=== PATIENT | male | born 1955 | race Caucasian/White ===

== ENCOUNTER 2018-06-08 21:51 | Emergency (ER) | payer BC ==
[~2018-06-08] VITALS: Ht 172.7 cm; Wt 81.8 kg
[2018-06-08] MEDS ORDERED: LIDOCAINE 2% MDV 20 ML VIAL SC ONE (22:15)
[2018-06-08] MEDS ORDERED: ADACEL/BOOSTRIX VACCINE (DIPHTH/PERTUSS/ACELL/TETANUS)0.5ML SYR (90715) IM ONE (22:15)
[2018-06-08] MEDS ORDERED: KEFL500C17 PO (22:48)
[2018-06-08 22:50] VITALS: BP 99/57
== END 2018-06-08 23:02 | disposition home or self-care (01) ==
LOC: M ED 21:51
DX: S61.012A Laceration without foreign body of left thumb without damage to nail, initial encounter (principal); W26.0XXA Contact with knife, initial encounter; Y92.098 Other place in other non-institutional residence as the place of occurrence of the external cause; Z88.8 Allergy status to other drugs, medicaments and biological substances

== ENCOUNTER → 2019-07-17 | Outpatient (REF) | payer BC ==
[~2019-07-17] MED LIST: KEFL500C17 PO
[2019-07-17 16:37] LABS: BASO # 0.1 10^3/uL (0.0-0.2); BASO % 0.7 % (0.0-1.0); EOS # 0.3 10^3/uL (0.0-0.5); HEMATOCRIT 45.4 % (42.0-52.0); HEMOGLOBIN 15.1 g/dl (13.5-17.5); LYMPH # 2.9 10^3/uL (1.5-5.0); LYMPH % 27.7 % (24.0-44.0); MEAN CORPUSCULAR HEMOGLOBIN 30.5 pg (27.0-33.0); MEAN CORPUSCULAR HGB CONC 33.3 g/dl (32.0-36.5); MEAN CORPUSCULAR VOLUME 91.7 fl (80.0-96.0); MONO # 0.6 10^3/uL (0.0-0.8); MONO % 6.2 % (0.0-5.0); NEUTROPHILS # 6.4 10^3/uL (1.5-8.5); NEUTROPHILS % 62.2 % (36.0-66.0); PLATELET COUNT, AUTOMATED 281 10^3/uL (150-450); RED BLOOD COUNT 4.95 10^6/uL (4.30-6.10); WHITE BLOOD COUNT 10.3 10^3/uL (4.0-10.0)
[2019-07-17 17:03] LABS: BILIRUBIN,TOTAL 0.7 MG/DL (0.2-1.0); CALCIUM LEVEL 9.2 MG/DL (8.8-10.2); CHOLESTEROL RISK RATIO 4.372 (<5); CREATININE FOR GFR 1.37 MG/DL (0.70-1.30); GLOMERULAR FILTRATION RATE 55.9 (>49); POTASSIUM SERUM 4.3 MEQ/L (3.5-5.1); THYROID STIMULATING HORMONE 2.07 uIU/ML (0.358-3.740)
== END ==
LOC: M LAB REF 16:09 → M SFHCCLAY 16:09
PROVIDERS: ATTEND Physician Assistant
DX: Z00.00 Encounter for general adult medical examination without abnormal findings (principal); R53.83 Other fatigue

== ENCOUNTER → 2020-06-24 | Outpatient (REF) | payer BC ==
[2020-06-24 16:44] LABS: ALT/SGPT 32 U/L (12-78); BILIRUBIN,TOTAL 0.3 MG/DL (0.2-1.0); BLOOD UREA NITROGEN 18 MG/DL (7-18); CALCIUM LEVEL 9.5 MG/DL (8.8-10.2); CARBON DIOXIDE LEVEL 29 MEQ/L (21-32); CHLORIDE LEVEL 105 MEQ/L (98-107); CHOLESTEROL LEVEL 205 MG/DL (<200); CREATININE FOR GFR 1.27 MG/DL (0.70-1.30); GLOMERULAR FILTRATION RATE > 60.0 (>49); GLUCOSE, FASTING 89 MG/DL (70-100); HDL CHOLESTEROL 43 MG/DL (>40); POTASSIUM SERUM 4.8 MEQ/L (3.5-5.1); SODIUM LEVEL 141 MEQ/L (136-145); TRIGLYCERIDES LEVEL 310 MG/DL (<150)
[2020-06-24 16:45] LABS: ALBUMIN 4.3 GM/DL (3.2-5.2); CHOLESTEROL RISK RATIO 4.767 (<5); FREE T4 0.92 NG/DL (0.76-1.46); LDL CHOLESTEROL 100 MG/DL (<100); NON-HDL-C 162 MG/DL; TOTAL PROTEIN 7.4 GM/DL (6.4-8.2)
== END ==
LOC: M LABDRAWC 15:48
PROVIDERS: ATTEND Nurse Practitioner Family
DX: Z00.00 Encounter for general adult medical examination without abnormal findings (principal); Z80.42 Family history of malignant neoplasm of prostate
CPT/HCPCS: 36415; 80053; 80061; 84439; 84443; G0103

== ENCOUNTER → 2020-08-03 | Outpatient (REF) | payer BC ==
[2020-08-04 12:34] LABS: BILIRUBIN,TOTAL 0.4 MG/DL (0.2-1.0); CALCIUM LEVEL 8.9 MG/DL (8.8-10.2); CREATININE FOR GFR 1.45 MG/DL (0.70-1.30); GLOMERULAR FILTRATION RATE 52.2 (>49); POTASSIUM SERUM 4.1 MEQ/L (3.5-5.1); TOTAL PROTEIN 6.9 GM/DL (6.4-8.2)
[2020-08-05 16:08] LABS: H PYLORI SERUM QUANT IGA <9.0 units (0.0-8.9); H PYLORI SERUM QUANT IGM <9.0 units (0.0-8.9); H PYLORI SERUM QUANT IgG ABY 0.23 (0.00-0.79)
== END ==
LOC: M LABDRAWC 11:16
PROVIDERS: ATTEND Nurse Practitioner Family
DX: K21.9 Gastro-esophageal reflux disease without esophagitis (principal)

== ENCOUNTER 2020-08-26 22:29 | Inpatient (IN) | payer BC ==
[~2020-08-26] VITALS: Ht 172.7 cm; Wt 88.9 kg
[2020-08-26] MEDS ORDERED: LATU20TA PO (22:44)
[2020-08-26] MEDS ORDERED: LITH300C PO (22:44)
[2020-08-26] MEDS ORDERED: LAMO-11 PO (22:44)
[2020-08-26] MEDS ORDERED: ALPR0.5T3 PO (22:44)
[2020-08-26] MEDS ORDERED: FAMO1TAB11 PO (22:44)
[2020-08-27 00:17] LABS: HEMATOCRIT 45.2 % (42.0-52.0); HEMOGLOBIN 15.2 g/dl (13.5-17.5); MEAN CORPUSCULAR HEMOGLOBIN 30.5 pg (27.0-33.0); MEAN CORPUSCULAR HGB CONC 33.6 g/dl (32.0-36.5); MEAN CORPUSCULAR VOLUME 90.6 fl (80.0-96.0); PLATELET COUNT, AUTOMATED 266 10^3/uL (150-450); RED BLOOD COUNT 4.99 10^6/uL (4.30-6.10)
[2020-08-27 00:19] LABS: WHITE BLOOD COUNT 15.9 10^3/uL (4.0-10.0)
[2020-08-27] MEDS ORDERED: ISOVUE-370 76% 100ML VIAL As Ordered ONE (00:26)
[2020-08-27] MEDS ORDERED: CIPROFLOXACIN 400 MG in IV 1 EA IV ONE (00:30)
[2020-08-27] MEDS ORDERED: metroNIDAZOLE 500 MG in IV 1 EA IV ONE (00:30)
[2020-08-27] MEDS ORDERED: ONDANSETRON 4MG/2ML VIAL IV ONE (00:30)
[2020-08-27] MEDS ORDERED: MORPHINE 4 MG/ML 1ML VIAL/SYRINGE (J2270) IV PRN (00:30)
[2020-08-27 00:32] LABS: ATYPICAL LYMPH 12 % (0-5); EOSINOPHILS 4 % (0-3); LYMPHOCYTES 38 % (16-44); MONOCYTES 7 % (0-5); NEUTROPHILS 39 % (28-66); PLATELET ESTIMATE NORMAL (NORMAL); SMUDGE CELLS 1+
[2020-08-27] MEDS: NS 1,000 ML IV SCH ×3 (00:45→21:50)
[2020-08-27 00:54] LABS: ALBUMIN 3.7 GM/DL (3.2-5.2); ALT/SGPT 25 U/L (12-78); BILIRUBIN,DIRECT < 0.1 MG/DL (0.0-0.2); BILIRUBIN,TOTAL 0.2 MG/DL (0.2-1.0); CK-MB VALUE MASS 1.6 NG/ML (<3.6); CPK CREATINE PHOSPHOKINASE 92 U/L (39-308); LIPASE 113 U/L (73-393); MB/CK RELATIVE INDEX 1.74 (< OR =4); TOTAL PROTEIN 6.9 GM/DL (6.4-8.2); TROPONIN I < 0.02 NG/ML (< 0.10)
--- NOTE | 2020-08-27 01:13 | REPVR ---
PROCEDURE INFORMATION: Exam: XR Chest Exam date and time: 08/26/2020 11:50 PM Age: 65 years old Clinical indication: Other: Chest pain TECHNIQUE: Imaging protocol: XR of the chest Views: 1 view. COMPARISON: No relevant prior studies available. FINDINGS: Lungs: Minimal right basilar atelectasis. Lung adams are otherwise clear. Pleural spaces: Unremarkable. No pleural effusion. No pneumothorax. Heart/Mediastinum: Unremarkable. No cardiomegaly. Vasculature: Elongation of the thoracic aorta. Bones/joints: Unremarkable. IMPRESSION: No acute process. Electronically signed by: Steven Rivero On 08/27/2020 01:13:06 AM
--- NOTE | 2020-08-27 01:20 | REPVR ---
PROCEDURE INFORMATION: Exam: CT Abdomen And Pelvis With Contrast Exam date and time: 08/27/2020 12:20 AM Age: 65 years old Clinical indication: Abdominal pain; Localized; Left lower quadrant (llq); Additional info: Llq pain, HX diverticulosis TECHNIQUE: Imaging protocol: Computed tomography of the abdomen and pelvis with contrast. Radiation optimization: All CT scans at this facility use at least one of these dose optimization techniques: automated exposure control; mA and/or kV adjustment per patient size (includes targeted exams where dose is matched to clinical indication); or iterative reconstruction. Contrast material: ISO; Contrast volume: 100 ml; Contrast route: INTRA-ARTERIAL (ARTERIAL); COMPARISON: No relevant prior studies available. FINDINGS: Lungs: Linear atelectasis or scarring at the lung bases. Mediastinal space: Small fat containing hiatal hernia. Liver: 2.4 cm right hepatic cyst. Additional small hepatic hypodensities are too small to characterize. Gallbladder and bile ducts: Normal. No calcified stones. No ductal dilation. Pancreas: There is pancreatic atrophy. Spleen: Normal. No splenomegaly. Adrenal glands: Normal. No mass. Kidneys and ureters: Normal. No hydronephrosis. Stomach and bowel: Diverticulosis without diverticulitis. Appendix: Normal appendix. Intraperitoneal space: Unremarkable. No free air. No significant fluid collection. Vasculature: Vascular calcification. Lymph nodes: Unremarkable. No enlarged lymph nodes. Urinary bladder: Unremarkable as visualized. Reproductive: Unremarkable as visualized. Bones/joints: There are degenerative changes involving the spine. Soft tissues: Unremarkable. IMPRESSION: 1. No acute abnormality involving the abdomen or pelvis. 2. Non emergent findings as above. Electronically signed by: Steven Rivero On 08/27/2020 01:20:40 AM
[2020-08-27] MEDS ORDERED: ACETAMINOPHEN TAB 650MG DOSE (2X325MG) PO PRN (02:40)
--- NOTE | 2020-08-27 02:57 | HPEPDOC ---
General Date of Admission 08/27/20 Date of Service: Aug 27, 2020 Attending Physician: CHAZ CARROLL MD Chief Complaint The patient is a 65-year-old male admitted with a reason for visit of Abd Pain. History of Present Illness HPI: Pt is a 65 y/o gentleman who presents to [facility] ER with cc of lower left quadrant abdominal pain x 3 days. Pt states that he's been experiencing bloating and gas like never before for the past 4 months. He states that he also has noticed that in the last 2 months that he's had episodes of constipation for 2-3 days and then a day or two of very loose stools. He states that when he is not experiencing constipation, he has 8-10 episodes of very loose non-bloody stools. He does not seem to have noticed any changes in stool caliber such as pencil thin shaped stools. Pt states he's recently traveled to [place] but denies any sick contacts. Denies any changes in eating habits. In the ER, he was in 7/10 pain with guarding on palpation and peritoneal signs as reported by the ER physician. He was given IV morphine and upon my examination, pt was in 1/10 pain and no significant guarding on palpation. CT abd/pelvis w/ ctx did not show any acute abn; however, pt has a WBC around 15. He denies any Chest pain, sob. Reports some nausea which he attributes to his reflux but denies any vomiting. Past medical Hx: Hx of diverticulosis and hemorrhoids GERD PTSD MDD Hx of epididymitis Arthritis accidents broken bones- 11 ribs on L side and nasal fx Surgical hx: colonoscopy 08/[address] buck cyst removal (benign) 2009 Family Hx: Father , COPD, HTN, CAD Mother: , CAD HTN Siblings 2 brothers with prostate ca 1 brother with pancreatic ca son alive- hodgkin's disease Social hx: Never smoker, occassional ETOH use; denies illicit drug use PHYSICAL EXAM: VS: see below ENERAL: Pt is laying comfortably, NAD HEENT: EOMI. Conjunctiva and lids normal. CARDIOVASCULAR: regular rhythm, rate controlled 58 on tele monitor. no crackles heard PULMONARY: No wheezing rhonci or rales appreciated. ABD: tenderness to palpation in epigastric region and lower left quadrant. mild guarding. Hypoactive bowel sounds in all four quadrants. EXTREMITIES: 2+ DP pulses. no pitting edema NEURO: No focal neurological deficits. CN II-12 preserved. Strength 3/5 throughout; sensation intact PSYCH: appropriate mood and affect; denies any suicidal ideation or self harm IMAGING: XR chest: No acute findings CT abd/pelvis w/ IV ctx : 1. No acute abnormality involving the abdomen or pelvis. 2. Non emergent findings as above. ASSESSMENT AND PLAN #Possible diverticulitis - cannot r/o malignancy - leukocytosis; afebrile - pt has a hx of diverticulosis - CT abd/pelvis w/ ctx: did not show any abn - NPO. will start NS @100cc/h for maintenance - will start on IV cipro/flagyl for empiric coverage - Recommend repeating CT abd/pelvis - Consider consulting Gen surg/GI for scope or f/u outpt #Diarrhea - Will order GI panel includ c diff - will order for stool occult blood - isolation precautions #GERD - c/w home meds # PTSD, MDD -c/w home meds DVT ppx: heparin Code status: Full Home Medications Scheduled Famotidine (Famotidine) 20 Mg Tablet, 20 MG PO BID, (Reported) Lamotrigine (Lamotrigine Odt) 100 Mg Tab.rapdis, 100 MG PO BID, (Reported) [place] Carbonate ([place] Carbonate) 300 Mg Capsule, 300 MG PO QPM, (Reported) TAKES AT DINNER Lurasidone Hydrochloride (Latuda) 20 Mg Tablet, 20 MG PO QPM, (Reported) TAKES AT DINNER Scheduled PRN Alprazolam (Alprazolam) 0.5 Mg Tablet, 0.5 MG PO BID PRN for ANXIETY, (Reported) Allergies Coded Allergies: prednisone (Verified Adverse Reaction, Intermediate, IRREGULAR HEART RATE, 08/26/20) A-FIB/CHADSVASC A-FIB History Current/History of A-Fib/PAF?: No Current PO Anticoag Therapy: No Vital Signs Vital Signs Date Time Temp Pulse Resp B/P (MAP) Pulse Ox O2 Delivery O2 Flow Rate FiO2 08/27/20 02:30 54 16 119/70 (86) 96 Room Air 08/26/20 22:29 97.3 Laboratory Data Labs 24H Laboratory Tests 2 08/26/20 23:56: Neutrophils (%) (Auto) , Nucleated Red Blood Cells % (auto) 0.0, Neutrophils 39, Lymphocytes (Manual) 38, Monocytes (Manual) 7H, Eosinophils (Manual) 4H, Atypical Lymphocytes 12H, Red Blood Cell Morphology NORMAL, Smudge Cells 1+, Platelet Estimate NORMAL, Total Bilirubin 0.2, Direct Bilirubin < 0.1, Aspartate Amino Transf (AST/SGOT) 17, Alanine Aminotransferase (ALT/SGPT) 25, Alkaline Phosphatase 69, Total Creatine Kinase 92, Creatine Kinase MB 1.6, Creatine Kinase MB Relative Index 1.74, Troponin I < 0.02, Total Protein 6.9, Albumin 3.7, Albumin/Globulin Ratio 1.2, Lipase 113 CBC/BMP Laboratory Tests 08/26/20 23:56 Microbiology Microbiology 08/27/20 Respiratory Virus Panel (PCR) ([facility]) - Final, Complete Plan / VTE VTE Prophylaxis Ordered?: Yes GME ATTESTATION GME ATTESTATION My faculty preceptor for this patient encounter was physically present during the encounter and was fully available. All aspects of the patient interview, examination, medical decision making process, and medical care plan development were reviewed and approved by the faculty preceptor. The faculty preceptor is aware and concurs with the plan as stated in the body of this note and will attest to such by his/her cosignature. Pierre Nieves DO Aug 27, 2020 02:57
[2020-08-27] MEDS ORDERED: MORPHINE 2 MG/ML 1ML VIAL (J2270) IV SCH (03:05)
[2020-08-27] MEDS ORDERED: ONDANSETRON 4MG/2ML VIAL IV PRN (03:10)
[2020-08-27] MEDS: HEPARIN SOD (PORCINE) 5000UNITS/ML 1ML VIAL/SYRINGE SC SCH ×3 (04:56→18:06)
[2020-08-27 06:00] VITALS: BP 140/82
--- NOTE | 2020-08-27 06:48 | ECGEPIP ---
[facility] - ED Test Date: 2020-08-27 Pat Name: VÍCTOR DAVIDSON Department: Room: [place] [address] Gender: Male [employer]: : 1955 Requested By: Montana Cedillo Order Number: [id number] Reading MD: Alma Palacios Measurements Intervals [place] Rate: 55 P: 8 AL: 182 QRS: 16 QRSD: 94 T: 18 QT: 406 QTc: 388 Interpretive Statements Sinus bradycardia No prior ECG for comparison Electronically Signed on 08-27-2020 6:47:56 EDT by Alma Palacios
[2020-08-27] MEDS: FAMOTIDINE 20 MG TAB PO SCH ×2 (09:10→21:43)
[2020-08-27] MEDS: lamoTRIgine 100MG TAB PO SCH ×2 (09:10→21:43)
[2020-08-27] MEDS: CIPROFLOXACIN 400 MG in IV 1 EA IV SCH ×2 (09:11→21:43)
[2020-08-27 10:39] LABS: HEMATOCRIT 41.6 % (42.0-52.0); MEAN CORPUSCULAR HEMOGLOBIN 30.6 pg (27.0-33.0); MEAN CORPUSCULAR HGB CONC 33.7 g/dl (32.0-36.5); PLATELET COUNT, AUTOMATED 262 10^3/uL (150-450); RED BLOOD COUNT 4.57 10^6/uL (4.30-6.10)
[2020-08-27 10:42] LABS: WHITE BLOOD COUNT 15.6 10^3/uL (4.0-10.0)
--- NOTE | 2020-08-27 10:54 | IPNPDOC ---
Text Note Date of Service The patient was seen on 08/27/20. NOTE Subjective: No acute events overnight. Pt c/o LLQ abd pain. Pt states that he has had this abdominal pain and bloating for the past four months but has worsened and is now more in his LLQ for the past three days. He states that he has not had similar sx in the past. Pt reports that he has also had episodes of intermittent constipation followed by diarrhea for the past two months. He has not noticed any blood or mucus in his stools. He reports that when he does have diarrhea it is just loose stools. Admits to some nausea. Denies any recent changes in diet but reports that he occasionally feels "really full after a small meal". Denies any chest pain, SOB, cough, congestion, fever, chills, or vomiting. He states that his last colonoscopy was in 2006 and was told that he had diverticulosis. He was scheduled for routine colonoscopy last spring but that was cancelled due to COVID. Pt is scheduled with Dr. Ross outpatient consultation next week to schedule routine colonoscopy. Objective: VITAL SIGNS: See below. GENERAL: Pt is laying comfortably in bed, no acute distress. HEENT: EOMI. Conjunctiva and lids normal. CARDIOVASCULAR: Regular rate and rhythm. No murmurs, rubs, or gallops appreciated. PULMONARY: Lungs clear to auscultation. Good air movement. No wheezes, rales, or rhonchi appreciated. ABD: Diffuse abdominal tenderness to palpation, greater in LLQ. Abdominal distention. Hyperactive bowel sounds in all four quadrants. No flank tenderness. EXTREMITIES: No pitting edema appreciated. 2+ DP pulses. NEURO: No focal neurological deficits. Imaging: CXR 08/26/[address] abd/pelvis 08/27/20 No acute abnormality involving the abdomen or pelvis. Non-emergent findings as above. Assessment/Plan: Pt is a 65 year old male with PMH of diverticulosis, GERD, PTSD, and MDD who presented to the ED due to worsening LLQ abd pain onset three days ago. In addition, he has also been c/o intermittent bouts of constipation followed by diarrhea that started two months ago. He reports that his last colonoscopy was i n 2006 and only diverticulosis was found. He was admitted for further management of possible diverticulitis. #Diverticulitis - Pt presents with hx of diverticulosis, placing him at increased risk of diverticulitis. Given his LLQ abd pain, nausea, changes in bowel habits, and leukocytosis, diverticulitis is the likely etiology. - CT abd/pelvis with contrast was done and showed no acute abnormality and diverticulosis without diverticulitis. - Acute causes of abd pain such as perforated diverticulum, abscess, or bowel obstruction have been ruled out with imaging. - Last colonoscopy pt reported was done in 2006 and he was told he had diverticulosis. However, looking back in his past medical records, pt last total colonoscopy was done in 2011 and only showed diverticulosis of the recto-sigmoid colon, sigmoid colon, and descending colon. Given pt change in bowel habits and abd pain and bloating, cannot rule out malignant process. Will have pt have repeat colonoscopy as outpatient after treatment of diverticulitis. - Pt has an appointment with Dr. Ross next week to schedule colonoscopy. Will have pt keep appointment and follow up. - Pt is NPO to allow for bowel rest. Pt is on IV fluids. - Pt on IV Metronidazole and Ciprofloxacin day #1 #Diarrhea/constipation - Pt has had intermittent bouts of constipation followed by episodes of diarrhea for the past two months. No blood or mucus noted in stools. - GI panel and C. diff by PCR pending. - Stool occult blood is pending. - Will have pt follow up with GI as outpatient. #GERD - Continue Pepcid 20 mg PO BID. #MDD/PTSD - Continue Xanax 0.5 mg PO BID PRN, Lamotrigine 100 mg PO BID, Latuda 20 mg PO QPM, and [place] 300 mg PO QPM. DVT Prophylaxis: Heparin 5,000 units SC Q8H. Disposition: Discharge pending clinical improvement. Anticipate discharge in the next 24-48 hours. VS,Fishbone, I+O VS, Fishbone, I+O Laboratory Tests 08/26/20 23:56 Vital Signs Date Time Temp Pulse Resp B/P (MAP) Pulse Ox O2 Delivery O2 Flow Rate FiO2 08/27/20 06:00 97.8 61 17 140/82 (101) 95 Room Air I&O- Last 24 Hours up to 6 AM 08/27/20 06:00 Intake Total 675 ml Balance 675 ml GME ATTESTATION GME ATTESTATION My faculty preceptor for this patient encounter was physically present during the encounter and was fully available. All aspects of the patient interview, examination, medical decision making process, and medical care plan development were reviewed and approved by the faculty preceptor. The faculty preceptor is aware and concurs with the plan as stated in the body of this note and will attest to such by his/her cosignature. ATTENDING NOTE Attending Attestation: Patient independently seen and examined. I have discussed in detail with the resident / student the findings and plan of treatment as documented by the resident / student. I agree with their findings and treatment plan and have edited their documentation. I will continue to follow the patient during this hospital stay. Lo RICHARD OMS-3 Aug 27, 2020 10:54 DEISY COLEY D.O. Aug 27, 2020 15:41 NICKY GRANADOS MD Aug 29, 2020 11:49
[2020-08-27 11:04] LABS: BLOOD UREA NITROGEN 17 MG/DL (7-18); CALCIUM LEVEL 8.5 MG/DL (8.8-10.2); CARBON DIOXIDE LEVEL 28 MEQ/L (21-32); CHLORIDE LEVEL 111 MEQ/L (98-107); CREATININE FOR GFR 1.17 MG/DL (0.70-1.30); GLOMERULAR FILTRATION RATE > 60.0 (>49); GLUCOSE, FASTING 88 MG/DL (70-100); POTASSIUM SERUM 4.5 MEQ/L (3.5-5.1); SODIUM LEVEL 143 MEQ/L (136-145)
[2020-08-27 11:05] LABS: ATYPICAL LYMPH 10 % (0-5); BASOPHILS 3 % (0-1); EOSINOPHILS 6 % (0-3); LYMPHOCYTES 19 % (16-44); MONOCYTES 5 % (0-5); NEUTROPHILS 57 % (28-66)
[2020-08-27 11:07] LABS: PLATELET ESTIMATE NORMAL (NORMAL)
[2020-08-27 11:09] LABS: SMUDGE CELLS 1+
[2020-08-27 14:00] VITALS: BP 107/62
[2020-08-27] MEDS: LITHIUM CARBONATE 300 MG CAP PO SCH (21:42)
[2020-08-27] MEDS: LURASIDONE 20 MG TAB (LATUDA) PO SCH (21:43)
[2020-08-27] MEDS: ALPRAZolam 0.5 MG TAB PO PRN (21:50)
[2020-08-27 22:00] VITALS: BP 129/63
[2020-08-28] MEDS ORDERED: metroNIDAZOLE 750 MG in IV 1 EA IV SCH (02:00)
[2020-08-28] MEDS: HEPARIN SOD (PORCINE) 5000UNITS/ML 1ML VIAL/SYRINGE SC SCH ×4 (03:00→23:48)
[2020-08-28 06:00] VITALS: BP 130/72
[2020-08-28 07:06] LABS: HEMATOCRIT 42.9 % (42.0-52.0); HEMOGLOBIN 14.2 g/dl (13.5-17.5); MEAN CORPUSCULAR HEMOGLOBIN 30.1 pg (27.0-33.0); MEAN CORPUSCULAR HGB CONC 33.1 g/dl (32.0-36.5); MEAN CORPUSCULAR VOLUME 91.1 fl (80.0-96.0); PLATELET COUNT, AUTOMATED 250 10^3/uL (150-450); RED BLOOD COUNT 4.71 10^6/uL (4.30-6.10); WHITE BLOOD COUNT 13.1 10^3/uL (4.0-10.0)
[2020-08-28 07:30] LABS: CALCIUM LEVEL 8.4 MG/DL (8.8-10.2); CREATININE FOR GFR 1.32 MG/DL (0.70-1.30); GLOMERULAR FILTRATION RATE 58.1 (>49); POTASSIUM SERUM 4.2 MEQ/L (3.5-5.1)
[2020-08-28] MEDS: NS 1,000 ML IV SCH ×2 (09:26→16:25)
[2020-08-28] MEDS: FAMOTIDINE 20 MG TAB PO SCH ×2 (09:27→20:42)
[2020-08-28] MEDS: CIPROFLOXACIN 400 MG in IV 1 EA IV SCH ×2 (09:27→20:42)
[2020-08-28] MEDS: lamoTRIgine 100MG TAB PO SCH ×2 (09:28→20:42)
--- NOTE | 2020-08-28 10:18 | IPNPDOC ---
Text Note Date of Service The patient was seen on 08/28/20. NOTE Subjective: Patient seen and examined at bedside. No acute overnight events reported. Patient is feeling much better this morning. States his abdominal pain has resolved. Objective: VITAL SIGNS: See below. GENERAL: Lying comfortably in bed, no acute distress HEENT: Normocephalic, atraumatic CARDIOVASCULAR: Regular rate and rhythm. No murmurs, rubs, or gallops appreciated. PULMONARY: Lungs clear to auscultation. Good air movement. No wheezes, rales, or rhonchi appreciated. ABD: Nontender, nondistended, positive bowel sounds NEURO: No focal neurological deficits. A/P: 65M with PMHx including diverticulosis, GERD, PTSD, and MDD who presented to the ED due to worsening LLQ abd pain onset three days ago. In addition, he has also been c/o intermittent bouts of constipation followed by diarrhea that started two months ago. He reports that his last colonoscopy was in 2006 and only diverticulosis was found. He was admitted for further management of possible diverticulitis. #Diverticulitis - abdominal pain resolved - starting oral diet- clears - advance as tolerated - continue IV abx - Pt has an appointment with Dr. Ross next week to schedule colonoscopy. Wi have pt keep appointment and follow up. - Pt on IV Metronidazole and Ciprofloxacin day #2 #Diarrhea/constipation - Will have pt follow up with GI as outpatient. #elevated creatinine - likely secondary to NPO/dehydration #GERD - Continue Pepcid 20 mg PO BID. #MDD/PTSD - Continue Xanax 0.5 mg PO BID PRN, Lamotrigine 100 mg PO BID, Latuda 20 mg PO QPM, and [place] 300 mg PO QPM. #DVT Prophylaxis: Heparin 5,000 units SC Q8H. Disposition: Discharge pending clinical improvement. Anticipate discharge in the next 24-48 hours. VS,Fishbone, I+O VS, Fishbone, I+O Laboratory Tests 08/28/20 05:58 Vital Signs Date Time Temp Pulse Resp B/P (MAP) Pulse Ox O2 Delivery O2 Flow Rate FiO2 08/28/20 06:00 97.7 53 19 130/72 (91) 96 Room Air I&O- Last 24 Hours up to 6 AM 08/28/20 06:00 Intake Total 1770 ml Output Total 1800 ml Balance -30 ml LALDIN,NICKY S. MD Aug 28, 2020 10:18
[2020-08-28 14:00] VITALS: BP 119/73
[2020-08-28] MEDS: metroNIDAZOLE 500 MG in IV 1 EA IV SCH ×2 (14:35→22:09)
[2020-08-28] MEDS: LITHIUM CARBONATE 300 MG CAP PO SCH (20:42)
[2020-08-28] MEDS: LURASIDONE 20 MG TAB (LATUDA) PO SCH (20:42)
[2020-08-28] MEDS: ALPRAZolam 0.5 MG TAB PO PRN (20:50)
[2020-08-28 22:00] VITALS: BP 120/70
[2020-08-29] MEDS: metroNIDAZOLE 500 MG in IV 1 EA IV SCH (05:33)
[2020-08-29 06:00] VITALS: BP 150/74
[2020-08-29 06:23] LABS: HEMATOCRIT 39.9 % (42.0-52.0); HEMOGLOBIN 13.3 g/dl (13.5-17.5); MEAN CORPUSCULAR HEMOGLOBIN 30.4 pg (27.0-33.0); MEAN CORPUSCULAR HGB CONC 33.3 g/dl (32.0-36.5); MEAN CORPUSCULAR VOLUME 91.1 fl (80.0-96.0); PLATELET COUNT, AUTOMATED 223 10^3/uL (150-450); RED BLOOD COUNT 4.38 10^6/uL (4.30-6.10)
[2020-08-29 06:26] LABS: WHITE BLOOD COUNT 10.5 10^3/uL (4.0-10.0)
[2020-08-29 06:45] LABS: CALCIUM LEVEL 8.7 MG/DL (8.8-10.2); CREATININE FOR GFR 1.42 MG/DL (0.70-1.30); GLOMERULAR FILTRATION RATE 53.4 (>49); POTASSIUM SERUM 4.1 MEQ/L (3.5-5.1)
[2020-08-29 07:29] LABS: ATYPICAL LYMPH 21 % (0-5); EOSINOPHILS 9 % (0-3); LYMPHOCYTES 30 % (16-44); MONOCYTES 10 % (0-5); NEUTROPHILS 30 % (28-66)
[2020-08-29 07:30] LABS: SMUDGE CELLS 2+
[2020-08-29 07:31] LABS: OVALOCYTES 1+
[2020-08-29 07:32] LABS: PLATELET ESTIMATE NORMAL (NORMAL)
[2020-08-29] MEDS ORDERED: FLUBLOK(EGG FREE)(QUAD)INFLUENZA VACC 0.5ML SYRINGE 18YRS & OLDER IM ONE (09:00)
[2020-08-29] MEDS: CIPROFLOXACIN 400 MG in IV 1 EA IV SCH (09:57)
[2020-08-29] MEDS: lamoTRIgine 100MG TAB PO SCH ×2 (09:57→21:14)
[2020-08-29] MEDS: FAMOTIDINE 20 MG TAB PO SCH ×2 (09:57→21:14)
--- NOTE | 2020-08-29 09:58 | IPNPDOC ---
Text Note Date of Service The patient was seen on 08/29/20. NOTE Subjective: Patient seen and examined at bedside. No acute overnight events reported. Patient is feeling much better this morning. States his abdominal pain has resolved. Tolerating diet. Objective: VITAL SIGNS: See below. GENERAL: Sitting comfortably in chair HEENT: Normocephalic, atraumatic CARDIOVASCULAR: Regular rate and rhythm. No murmurs, rubs, or gallops appreciated. PULMONARY: Lungs clear to auscultation. Good air movement. No wheezes, rales, or rhonchi appreciated. ABD: Nontender, nondistended, positive bowel sounds NEURO: No focal neurological deficits. A/P: 65M with PMHx including diverticulosis, GERD, PTSD, and MDD who presented to the ED due to worsening LLQ abd pain onset three days ago. In addition, he has also been c/o intermittent bouts of constipation followed by diarrhea that started two months ago. He reports that his last colonoscopy was in 2006 and only diverticulosis was found. He was admitted for further management of possible diverticulitis. #Diverticulitis - abdominal pain resolved - oral antibiotics, tolerating diet - Pt has an appointment with Dr. Ross next week to schedule colonoscopy. Will have pt keep appointment and follow up. - Pt on Metronidazole and Ciprofloxacin day #3 #Diarrhea/constipation - Will have pt follow up with GI as outpatient. #WATSON - possibly contrast induced nephropathy - will start IV fluids - check UA today, no acute findings on previous CT a/p #GERD - Continue Pepcid 20 mg PO BID. #MDD/PTSD - Continue Xanax 0.5 mg PO BID PRN, Lamotrigine 100 mg PO BID, Latuda 20 mg PO QPM, and [place] 300 mg PO QPM. #DVT Prophylaxis: Heparin 5,000 units SC Q8H. Disposition: Discharge pending improvement in renal function. Anticipate discharge in the next 24-48 hours. VS,Fishbone, I+O VS, Fishbone, I+O Laboratory Tests 08/29/20 06:03 Vital Signs Date Time Temp Pulse Resp B/P (MAP) Pulse Ox O2 Delivery O2 Flow Rate FiO2 08/29/20 06:00 97.6 52 17 150/74 (99) 95 Room Air I&O- Last 24 Hours up to 6 AM 08/29/20 05:59 Intake Total 2550 ml Output Total 2750 ml Balance -200 ml NICKY GRANADOS MD Aug 29, 2020 09:58
[2020-08-29] MEDS: HEPARIN SOD (PORCINE) 5000UNITS/ML 1ML VIAL/SYRINGE SC SCH ×2 (10:39→18:19)
[2020-08-29 14:00] VITALS: BP 115/62
[2020-08-29] MEDS: metroNIDAZOLE (FLAGYL) 500MG TABLET PO SCH ×2 (14:21→21:14)
[2020-08-29 15:29] LABS: CALCIUM LEVEL 8.6 MG/DL (8.8-10.2); CREATININE FOR GFR 1.49 MG/DL (0.70-1.30); GLOMERULAR FILTRATION RATE 50.5 (>49); POTASSIUM SERUM 3.9 MEQ/L (3.5-5.1)
[2020-08-29] MEDS: NS 1,000 ML IV SCH (17:13)
[2020-08-29] MEDS: CIPROFLOXACIN 500MG TABLET PO SCH (18:12)
[2020-08-29] MEDS: ALPRAZolam 0.5 MG TAB PO PRN (21:14)
[2020-08-29] MEDS: LURASIDONE 20 MG TAB (LATUDA) PO SCH (21:14)
[2020-08-29] MEDS: LITHIUM CARBONATE 300 MG CAP PO SCH (21:14)
[2020-08-29 22:00] VITALS: BP 106/61
[2020-08-30] MEDS: HEPARIN SOD (PORCINE) 5000UNITS/ML 1ML VIAL/SYRINGE SC SCH (01:23)
[2020-08-30] MEDS: NS 1,000 ML IV SCH (03:18)
[2020-08-30] MEDS: metroNIDAZOLE (FLAGYL) 500MG TABLET PO SCH (05:48)
[2020-08-30] MEDS: CIPROFLOXACIN 500MG TABLET PO SCH (05:48)
[2020-08-30 05:54] LABS: HEMATOCRIT 39.3 % (42.0-52.0); HEMOGLOBIN 13.3 g/dl (13.5-17.5); MEAN CORPUSCULAR HEMOGLOBIN 30.5 pg (27.0-33.0); MEAN CORPUSCULAR HGB CONC 33.8 g/dl (32.0-36.5); MEAN CORPUSCULAR VOLUME 90.1 fl (80.0-96.0); PLATELET COUNT, AUTOMATED 221 10^3/uL (150-450); RED BLOOD COUNT 4.36 10^6/uL (4.30-6.10); WHITE BLOOD COUNT 10.9 10^3/uL (4.0-10.0)
[2020-08-30 06:00] VITALS: BP 113/64
[2020-08-30 06:18] LABS: CREATININE FOR GFR 1.37 MG/DL (0.70-1.30); GLOMERULAR FILTRATION RATE 55.7 (>49); POTASSIUM SERUM 3.9 MEQ/L (3.5-5.1)
[2020-08-30] MEDS: FAMOTIDINE 20 MG TAB PO SCH (08:51)
[2020-08-30] MEDS: lamoTRIgine 100MG TAB PO SCH (08:51)
[2020-08-30] MEDS ORDERED: FLAG500T PO (08:58)
[2020-08-30] MEDS ORDERED: CIPR-249 PO (08:58)
--- NOTE | 2020-08-30 14:59 | DS.PDOC ---
Discharge Summary General Date of Admission Aug 27, 2020 at 02:54 Date of Discharge 08/30/20 Discharge Summary PROCEDURES PERFORMED DURING STAY: [None]. ADMITTING DIAGNOSES: diverticulitis DISCHARGE DIAGNOSES: diverticulitis elevated creatinine - contrast induced SECONDARY DIAGNOSES: Hx of diverticulosis and hemorrhoids GERD PTSD MDD Hx of epididymitis Arthritis accidents broken bones- 11 ribs on L side and nasal fx COMPLICATIONS/CHIEF COMPLAINT: Diverticulitis. HISTORY OF PRESENT ILLNESS:Pt is a 65 y/o gentleman who presents to [facility] ER with cc of lower left quadrant abdominal pain x 3 days. Pt states that he's been experiencing bloating and gas like never before for the past 4 months. He states that he also has noticed that in the last 2 months that he's had episodes of constipation for 2-3 days and then a day or two of very loose stools. He states that when he is not experiencing constipation, he has 8-10 episodes of very loose non-bloody stools. He does not seem to have noticed any changes in stool caliber such as pencil thin shaped stools. Pt states he's recently traveled to [place] but denies any sick contacts. Denies any changes in eating habits. In the ER, he was in 7/10 pain with guarding on palpation and peritoneal signs as reported by the ER physician. He was given IV morphine and upon my examination, pt was in 1/10 pain and no significant guarding on palpation. CT abd/pelvis w/ ctx did not show any acute abn; however, pt has a WBC around 15. He denies any Chest pain, sob. Reports some nausea which he attributes to his reflux but denies any vomiting. HOSPITAL COURSE: Patient admitted for further evaluation and treatment for diverticulitis. Responded well to IV antibiotics with NPO status. Abdominal pain resolved, and diet was advanced and tolerated. Hospital stay complicated with renal insufficiency, felt to be secondary to contrast, responded well to iv fluids. Patient discharged home with outpatient follow up, he has an appointment for colonoscopy. DISCHARGE MEDICATIONS: Please see below. ALLERGIES: Please see below. PHYSICAL EXAMINATION ON DISCHARGE: VITAL SIGNS: Please see below. GENERAL: Sitting comfortably in chair HEENT: Normocephalic, atraumatic CARDIOVASCULAR: Regular rate and rhythm. No murmurs, rubs, or gallops appreciated. PULMONARY: Lungs clear to auscultation. Good air movement. No wheezes, rales, or rhonchi appreciated. ABD: Nontender, nondistended, positive bowel sounds NEURO: No focal neurological deficits. LABORATORY DATA: Please see below. ACTIVITY: [As tolerated]. DISPOSITION: 01 Home, Self-Care. DISCHARGE INSTRUCTIONS: 1. Follow up PCP in 3-5 days 2. Follow up surgery Dr. Ross as scheduled. 3. Follow up BMP in 3-5 days to monitor renal function. DISCHARGE CONDITION: [Stable]. TIME SPENT ON DISCHARGE: 35 minutes. Vital Signs/I&Os Vital Signs Date Time Temp Pulse Resp B/P (MAP) Pulse Ox O2 Delivery O2 Flow Rate FiO2 08/30/20 06:00 97.3 56 17 113/64 (80) 94 Room Air I&O- Last 24 Hours up to 6 AM 08/30/20 06:00 Intake Total 4130 ml Output Total 6750 ml Balance -2620 ml Laboratory Data Labs 24H Laboratory Tests 2 08/29/20 16:47: Urine Color COLORLESS, Urine Appearance CLEAR, Urine pH 6.0, Urine Specific [place] 1.002, Urine Protein NEGATIVE, Urine Glucose (UA) NEGATIVE, Urine Ketones NEGATIVE, Urine Blood NEGATIVE, Urine Nitrite NEGATIVE, Urine Bilirubin NEGATIVE, Urine Urobilinogen 0.2, Urine Leukocyte Esterase NEGATIVE, Urine WBC (Auto) 0, Urine RBC (Auto) 0, Urine Hyaline Casts (Auto) 0, Urine Bacteria (Auto) NEGATIVE, Urine Squamous Epithelial Cells 0, Urine Sperm (Auto) 08/30/20 05:31: Nucleated Red Blood Cells % (auto) 0.0, Anion Gap 5L, Glomerular Filtration Rate 55.7, Calcium Level 8.0L 08/30/20 11:55: Lab Scanned Report Miscellaneous Lab CBC/BMP Laboratory Tests 08/30/20 05:31 Microbiology Microbiology 08/27/20 Blood Culture - Preliminary, Resulted No Growth after 72 hours. All specime... 08/27/20 Blood Culture - Preliminary, Resulted No Growth after 72 hours. All specime... 08/27/20 Respiratory Virus Panel (PCR) ([facility]) - Final, Complete Discharge Medications Scheduled Ciprofloxacin HCl (Cipro) 500 Mg Tablet, 500 MG PO BID@ Famotidine (Famotidine) 20 Mg Tablet, 20 MG PO BID, (Reported) Lamotrigine (Lamotrigine Odt) 100 Mg Tab.rapdis, 100 MG PO BID, (Reported) [place] Carbonate ([place] Carbonate) 300 Mg Capsule, 300 MG PO QPM, (Reported) TAKES AT DINNER Lurasidone Hydrochloride (Latuda) 20 Mg Tablet, 20 MG PO QPM, (Reported) TAKES AT DINNER Metronidazole (Flagyl) 500 Mg Tablet, 500 MG PO Q8H Scheduled PRN Alprazolam (Alprazolam) 0.5 Mg Tablet, 0.5 MG PO BID PRN for ANXIETY, (Reported) Allergies Coded Allergies: prednisone (Verified Adverse Reaction, Intermediate, IRREGULAR HEART RATE, 08/26/20) NICKY GRANADOS MD Aug 30, 2020 14:59
== END 2020-08-30 11:49 | disposition home or self-care (01) | DRG 244 ==
LOC: M ED 22:29 → M ED INP 08-27 02:54 → ENRESERV 08-27 03:14 → M MSPAV 08-27 04:41
PROVIDERS: ADMIT Family Medicine; ATTEND Internal Medicine
DX: K57.92 Diverticulitis of intestine, part unspecified, without perforation or abscess without bleeding (principal); F43.10 Post-traumatic stress disorder, unspecified; K21.9 Gastro-esophageal reflux disease without esophagitis; M19.90 Unspecified osteoarthritis, unspecified site; K64.8 Other hemorrhoids; Z79.899 Other long term (current) drug therapy; Z88.8 Allergy status to other drugs, medicaments and biological substances

== ENCOUNTER → 2020-10-16 | Outpatient (CLI) | payer BC ==
[~2020-10-16] MED LIST changes: +ALPR0.5T3 PO; +CIPR-249 PO; +FAMO1TAB11 PO; +FLAG500T PO; +LAMO-11 PO; +LATU20TA PO; +LITH300C PO; +OMEP-221 PO
== END ==
LOC: M LABSMTC 09:04
PROVIDERS: ATTEND Anesthesiology
DX: Z20.828 Contact with and (suspected) exposure to other viral communicable diseases (principal); Z11.59 Encounter for screening for other viral diseases

== ENCOUNTER 2020-10-21 10:01 | Day surgery (SDC) | payer BC ==
[~2020-10-21] VITALS: Ht 172.7 cm; Wt 85.7 kg
[~2020-10-21 10:01] MED LIST changes: +NS 1,000 ML IV ONE
[2020-10-21] MEDS ORDERED: fentaNYL 100 MCG/2 ML INJECTION (J3010) As Ordered ONE (11:40)
[2020-10-21] MEDS ORDERED: propofoL 200 MG/20 ML VIAL As Ordered ONE (11:40)
[2020-10-21] MEDS ORDERED: LIDOCAINE 2% 100MG/5ML SDV (FOR ANES.) As Ordered ONE (11:40)
--- NOTE | 2020-10-21 11:50 | ROOR ---
Patient Name: Jia Keller Procedure Date: 10/21/2020 11:35 AM Date of : 1955 Age: 65 Room: [facility] Gender: Male Note Status: Finalized Procedure: Upper GI endoscopy Indications: Heartburn Providers: Teddy Ross Jr, MD Referring MD: Marilee Galvez MD Requesting Provider: Medicines: Propofol per Anesthesia Complications: No immediate complications. Procedure: Pre-Anesthesia Assessment: - Prior to the procedure, a History and Physical was performed, and patient medications and allergies were reviewed. The patient is competent. The risks and benefits of the procedure and the sedation options and risks were discussed with the patient. All questions were answered and informed consent was obtained. Patient identification and proposed procedure were verified by the physician and the nurse in the pre-procedure area and in the procedure room. Mental Status Examination: alert and oriented. Airway Examination: normal oropharyngeal airway and neck mobility. Respiratory Examination: clear to auscultation. CV Examination: normal. ASA Grade Assessment: II - A patient with mild systemic disease. After reviewing the risks and benefits, the patient was deemed in satisfactory condition to undergo the procedure. The anesthesia plan was to use moderate sedation / analgesia (conscious sedation). Immediately prior to administration of medications, the patient was re-assessed for adequacy to receive sedatives. The heart rate, respiratory rate, oxygen saturations, blood pressure, adequacy of pulmonary ventilation, and response to care were monitored throughout the procedure. The physical status of the patient was re-assessed after the procedure. The Endoscope was introduced through the mouth, and advanced to the second part of duodenum. The upper GI endoscopy was accomplished without difficulty. The patient tolerated the procedure well. Findings: The upper third of the esophagus, middle third of the esophagus and lower third of the esophagus were normal. A small hiatal hernia was present. Biopsies were taken with a cold forceps for histology. The cardia, gastric fundus, gastric body, gastric antrum, prepyloric region of the stomach and pylorus were normal. Biopsies were taken with a cold forceps for histology. The duodenal bulb, first portion of the duodenum and second portion of the duodenum were normal. Impression: - Normal upper third of esophagus, middle third of esophagus and lower third of esophagus. - Small hiatal hernia. Biopsied. - Normal cardia, gastric fundus, gastric body, antrum, prepyloric region of the stomach and pylorus. Biopsied. - Normal duodenal bulb, first portion of the duodenum and second portion of the duodenum. Recommendation: - Discharge patient to home (ambulatory). - Return to my office at appointment to be scheduled. Procedure Code(s): --- Professional --- 30648, Esophagogastroduodenoscopy, flexible, transoral; with biopsy, single or multiple Diagnosis Code(s): --- Professional --- K44.9, Diaphragmatic hernia without obstruction or gangrene R12, Heartburn CPT copyright 2019 [employer]. All rights reserved. The codes documented in this report are preliminary and upon parts technician review may be revised to meet current compliance requirements. Teddy Ross MD Teddy Ross Jr, MD 10/21/2020 11:49:51 AM Electronically signed by Teddy Ross Jr, MD Number of Addenda: 0 Note Initiated On: 10/21/2020 11:35 AM Estimated Blood Loss: Estimated blood loss: none.
--- NOTE | 2020-10-21 12:04 | ROOR ---
Patient Name: Jai Keller Procedure Date: 10/21/2020 11:36 AM Date of : 1955 Age: 65 Room: [facility] Gender: Male Note Status: Finalized Procedure: Colonoscopy Indications: Follow-up of diverticulitis Providers: Teddy Ross Jr, MD Referring MD: Marilee Galvez MD Requesting Provider: Medicines: Propofol per Anesthesia Complications: No immediate complications. Procedure: Pre-Anesthesia Assessment: - Prior to the procedure, a History and Physical was performed, and patient medications and allergies were reviewed. The patient is competent. The risks and benefits of the procedure and the sedation options and risks were discussed with the patient. All questions were answered and informed consent was obtained. Patient identification and proposed procedure were verified by the physician and the nurse in the pre-procedure area and in the procedure room. Mental Status Examination: alert and oriented. Airway Examination: normal oropharyngeal airway and neck mobility. Respiratory Examination: clear to auscultation. CV Examination: normal. ASA Grade Assessment: II - A patient with mild systemic disease. After reviewing the risks and benefits, the patient was deemed in satisfactory condition to undergo the procedure. The anesthesia plan was to use moderate sedation / analgesia (conscious sedation). Immediately prior to administration of medications, the patient was re-assessed for adequacy to receive sedatives. The heart rate, respiratory rate, oxygen saturations, blood pressure, adequacy of pulmonary ventilation, and response to care were monitored throughout the procedure. The physical status of the patient was re-assessed after the procedure. The Colonoscope was introduced through the anus and advanced to the cecum, identified by appendiceal orifice and ileocecal valve. The colonoscopy was performed without difficulty. The patient tolerated the procedure well. The quality of the bowel preparation was adequate. Findings: The rectum, recto-sigmoid colon, cecum, appendiceal orifice and ileocecal valve appeared normal. Many small and large-mouthed diverticula were found in the sigmoid colon. Scattered small and large-mouthed diverticula were found in the descending colon, transverse colon and ascending colon. Impression: - The rectum, recto-sigmoid colon, cecum, appendiceal orifice and ileocecal valve are normal. - Diverticulosis in the sigmoid colon. - Diverticulosis in the descending colon, in the transverse colon and in the ascending colon. - No specimens collected. Recommendation: - Discharge patient to home (ambulatory). - Repeat colonoscopy in 10 years for screening purposes. Procedure Code(s): --- Professional --- 30584, Colonoscopy, flexible; diagnostic, including collection of specimen(s) by brushing or washing, when performed (separate procedure) Diagnosis Code(s): --- Professional --- K57.32, Diverticulitis of large intestine without perforation or abscess without bleeding K57.30, Diverticulosis of large intestine without perforation or abscess without bleeding CPT copyright 2019 [employer]. All rights reserved. The codes documented in this report are preliminary and upon pharmacy intern review may be revised to meet current compliance requirements. Teddy Ross MD Teddy Ross Jr, MD 10/21/2020 12:03:51 PM Electronically signed by Teddy Ross Jr, MD Number of Addenda: 0 Note Initiated On: 10/21/2020 11:36 AM Estimated Blood Loss: Estimated blood loss: none.
[2020-10-21 12:36] VITALS: BP 120/66
== END 2020-10-21 12:37 | disposition home or self-care (01) ==
LOC: M OPP 10:01
PROVIDERS: ATTEND Surgery
DX: K57.32 Diverticulitis of large intestine without perforation or abscess without bleeding (principal); K57.30 Diverticulosis of large intestine without perforation or abscess without bleeding; K44.9 Diaphragmatic hernia without obstruction or gangrene; R12 Heartburn; K21.9 Gastro-esophageal reflux disease without esophagitis; Z79.899 Other long term (current) drug therapy; Z88.8 Allergy status to other drugs, medicaments and biological substances
CPT/HCPCS: 43239; 45378; 88305; J3010

== ENCOUNTER → 2021-01-18 | Outpatient (REF) | payer BC ==
[~2021-01-18] MED LIST changes: -NS 1,000 ML IV ONE
[2021-01-18 12:49] LABS: HEMATOCRIT 44.8 % (42.0-52.0); MEAN CORPUSCULAR HEMOGLOBIN 30.4 pg (27.0-33.0); MEAN CORPUSCULAR HGB CONC 33.5 g/dl (32.0-36.5); MEAN CORPUSCULAR VOLUME 90.7 fl (80.0-96.0); PLATELET COUNT, AUTOMATED 236 10^3/uL (150-450); RED BLOOD COUNT 4.94 10^6/uL (4.30-6.10)
[2021-01-18 12:56] LABS: WHITE BLOOD COUNT 12.9 10^3/uL (4.0-10.0)
[2021-01-18 13:21] LABS: ANISOCYTOSIS 1+; ATYPICAL LYMPH 12 % (0-5); BLAST CELLS 1 % (0-0); EOSINOPHILS 5 % (0-3); LYMPHOCYTES 50 % (16-44); MONOCYTES 2 % (0-5); NEUTROPHILS 29 % (28-66); PLATELET ESTIMATE NORMAL (NORMAL)
[2021-01-18 13:55] LABS: ALBUMIN 3.6 GM/DL (3.2-5.2); BILIRUBIN,TOTAL 0.6 MG/DL (0.2-1.0); CALCIUM LEVEL 8.5 MG/DL (8.8-10.2); CARBAMAZEPINE (TEGRETOL) LEVEL 5.3 UG/ML (4.0-10.0); CREATININE FOR GFR 1.32 MG/DL (0.70-1.30); GLOMERULAR FILTRATION RATE 58.1 (>49); POTASSIUM SERUM 4.1 MEQ/L (3.5-5.1); TOTAL PROTEIN 6.5 GM/DL (6.4-8.2)
[2021-01-19 15:09] LABS: Lyme Disease IgG/IgM Antibodie <0.91 ISR (0.00-0.90); Lyme Disease IgM Ab Quantitati <0.80 index (0.00-0.79)
== END ==
LOC: M LABDRAWC 11:10
PROVIDERS: ATTEND Psychiatry & Neurology Neurology
DX: G50.0 Trigeminal neuralgia (principal); Z11.9 Encounter for screening for infectious and parasitic diseases, unspecified

== ENCOUNTER → 2021-03-10 | Outpatient (REF) | payer BC ==
[2021-03-10 11:31] LABS: HEMATOCRIT 43.9 % (42.0-52.0); HEMOGLOBIN 14.9 g/dl (13.5-17.5); MEAN CORPUSCULAR HEMOGLOBIN 31.4 pg (27.0-33.0); MEAN CORPUSCULAR HGB CONC 33.9 g/dl (32.0-36.5); MEAN CORPUSCULAR VOLUME 92.6 fl (80.0-96.0); PLATELET COUNT, AUTOMATED 228 10^3/uL (150-450); RED BLOOD COUNT 4.74 10^6/uL (4.30-6.10); WHITE BLOOD COUNT 14.7 10^3/uL (4.0-10.0)
[2021-03-10 12:16] LABS: ATYPICAL LYMPH 31 % (0-5); BASOPHILS 2 % (0-1); EOSINOPHILS 4 % (0-3); LYMPHOCYTES 31 % (16-44); MONOCYTES 13 % (0-5); NEUTROPHILS 19 % (28-66)
[2021-03-10 12:17] LABS: PLATELET ESTIMATE NORMAL (NORMAL); SMUDGE CELLS 1+
[2021-03-10 12:22] LABS: ALBUMIN 3.8 GM/DL (3.2-5.2); ALT/SGPT 24 U/L (12-78); BILIRUBIN,TOTAL 0.4 MG/DL (0.2-1.0); BLOOD UREA NITROGEN 22 MG/DL (7-18); CALCIUM LEVEL 8.9 MG/DL (8.8-10.2); CARBAMAZEPINE (TEGRETOL) LEVEL 6.1 UG/ML (4.0-10.0); CARBON DIOXIDE LEVEL 30 MEQ/L (21-32); CHLORIDE LEVEL 107 MEQ/L (98-107); CREATININE FOR GFR 1.25 MG/DL (0.70-1.30); GLOMERULAR FILTRATION RATE > 60.0 (>49); GLUCOSE, FASTING 87 MG/DL (70-100); POTASSIUM SERUM 4.5 MEQ/L (3.5-5.1); SODIUM LEVEL 142 MEQ/L (136-145); TOTAL PROTEIN 6.8 GM/DL (6.4-8.2)
== END ==
LOC: M LABDRAWC 11:10
PROVIDERS: ATTEND Psychiatry & Neurology Neurology
DX: G50.0 Trigeminal neuralgia (principal)

== ENCOUNTER → 2021-04-25 | Outpatient (CLI) | payer BC ==
[~2021-04-25] MED LIST changes: -LAMO-11 PO; +LAMO-30 PO; -OMEP-221 PO; +OMEP40CA5 PO
[2021-04-25 16:09] LABS: HEMATOCRIT 44.3 % (42.0-52.0); HEMOGLOBIN 14.8 g/dl (13.5-17.5); MEAN CORPUSCULAR HEMOGLOBIN 30.8 pg (27.0-33.0); MEAN CORPUSCULAR HGB CONC 33.4 g/dl (32.0-36.5); MEAN CORPUSCULAR VOLUME 92.1 fl (80.0-96.0); PLATELET COUNT, AUTOMATED 248 10^3/uL (150-450); RED BLOOD COUNT 4.81 10^6/uL (4.30-6.10); WHITE BLOOD COUNT 20.8 10^3/uL (4.0-10.0)
[2021-04-25 16:37] LABS: ALBUMIN 3.9 GM/DL (3.2-5.2); ALT/SGPT 36 U/L (12-78); BILIRUBIN,TOTAL 0.3 MG/DL (0.2-1.0); BLOOD UREA NITROGEN 20 MG/DL (7-18); CALCIUM LEVEL 8.8 MG/DL (8.8-10.2); CARBAMAZEPINE (TEGRETOL) LEVEL 4.1 UG/ML (4.0-10.0); CARBON DIOXIDE LEVEL 28 MEQ/L (21-32); CHLORIDE LEVEL 109 MEQ/L (98-107); CREATININE FOR GFR 1.16 MG/DL (0.70-1.30); GLOMERULAR FILTRATION RATE > 60.0 (>49); GLUCOSE, FASTING 109 MG/DL (70-100); POTASSIUM SERUM 4.2 MEQ/L (3.5-5.1); SODIUM LEVEL 142 MEQ/L (136-145); TOTAL PROTEIN 6.8 GM/DL (6.4-8.2)
[2021-04-25 17:53] LABS: ATYPICAL LYMPH 25 % (0-5); BASOPHILS 2 % (0-1); LYMPHOCYTES 22 % (16-44); MONOCYTES 5 % (0-5); NEUTROPHILS 44 % (28-66); PLATELET ESTIMATE NORMAL (NORMAL)
== END ==
LOC: M PLALAB 13:45
PROVIDERS: ATTEND Psychiatry & Neurology Neurology
DX: G50.0 Trigeminal neuralgia (principal)

== ENCOUNTER → 2021-06-30 | Outpatient (REF) | payer MEDICARE ==
[2021-06-30 12:09] LABS: ALBUMIN 3.9 GM/DL (3.2-5.2); ALT/SGPT 25 U/L (12-78); BILIRUBIN,TOTAL 0.3 MG/DL (0.2-1.0); BLOOD UREA NITROGEN 18 MG/DL (7-18); CALCIUM LEVEL 8.9 MG/DL (8.8-10.2); CARBON DIOXIDE LEVEL 28 MEQ/L (21-32); CHLORIDE LEVEL 108 MEQ/L (98-107); CHOLESTEROL LEVEL 195 MG/DL (<200); CHOLESTEROL RISK RATIO 5.571 (<5); CREATININE FOR GFR 1.23 MG/DL (0.70-1.30); GLOMERULAR FILTRATION RATE > 60.0 (>49); GLUCOSE, FASTING 96 MG/DL (70-100); HDL CHOLESTEROL 35 MG/DL (>40); LDL CHOLESTEROL 123 MG/DL (<100); NON-HDL-C 160 MG/DL; POTASSIUM SERUM 4.3 MEQ/L (3.5-5.1); SODIUM LEVEL 142 MEQ/L (136-145); TOTAL PROTEIN 6.8 GM/DL (6.4-8.2); TRIGLYCERIDES LEVEL 187 MG/DL (<150)
== END ==
LOC: M LABDRAWC 10:58
PROVIDERS: ATTEND Nurse Practitioner Family
DX: Z00.00 Encounter for general adult medical examination without abnormal findings (principal)

== ENCOUNTER → 2021-07-20 | Outpatient (REF) | payer MEDICARE ==
[2021-07-20 11:39] LABS: HEMATOCRIT 45.3 % (42.0-52.0); HEMOGLOBIN 15.4 g/dl (13.5-17.5); MEAN CORPUSCULAR HEMOGLOBIN 30.6 pg (27.0-33.0); MEAN CORPUSCULAR VOLUME 89.9 fl (80.0-96.0); PLATELET COUNT, AUTOMATED 250 10^3/uL (150-450); RED BLOOD COUNT 5.04 10^6/uL (4.30-6.10); WHITE BLOOD COUNT 21.4 10^3/uL (4.0-10.0)
[2021-07-20 12:02] LABS: ATYPICAL LYMPH 8 % (0-5); BASOPHILS 1 % (0-1); EOSINOPHILS 1 % (0-3); LYMPHOCYTES 68 % (16-44); MONOCYTES 4 % (0-5); NEUTROPHILS 18 % (28-66)
[2021-07-20 12:03] LABS: BLOOD UREA NITROGEN 16 MG/DL (7-18); CREATININE FOR GFR 1.15 MG/DL (0.70-1.30); GLOMERULAR FILTRATION RATE > 60.0 (>49); PLATELET ESTIMATE NORMAL (NORMAL); SMUDGE CELLS 1+
[2021-07-20 12:04] LABS: OVALOCYTES 2+
== END ==
LOC: M LABDRAWC 11:15
PROVIDERS: ATTEND Surgery
DX: Z01.810 Encounter for preprocedural cardiovascular examination (principal); K57.32 Diverticulitis of large intestine without perforation or abscess without bleeding

== ENCOUNTER → 2021-07-25 | Outpatient (CLI) | payer MEDICARE ==
[~2021-07-25] MED LIST changes: +GASTROGRAFIN SOLUTION 30ML (Q9963) ONE; +ISOVUE-370 76% 100ML VIAL ONE
== END ==
LOC: M PLAIMG 10:41
PROVIDERS: ATTEND Surgery
DX: K57.32 Diverticulitis of large intestine without perforation or abscess without bleeding (principal)
CPT/HCPCS: 74178; Q9963; Q9967

== ENCOUNTER → 2021-08-09 | Outpatient (CLI) | payer MEDICARE ==
[~2021-08-09] MED LIST changes: -GASTROGRAFIN SOLUTION 30ML (Q9963) ONE; -ISOVUE-370 76% 100ML VIAL ONE
[2021-08-09 13:22] LABS: HEMATOCRIT 43.5 % (42.0-52.0); HEMOGLOBIN 14.9 g/dl (13.5-17.5); MEAN CORPUSCULAR HEMOGLOBIN 30.6 pg (27.0-33.0); MEAN CORPUSCULAR HGB CONC 34.3 g/dl (32.0-36.5); MEAN CORPUSCULAR VOLUME 89.3 fl (80.0-96.0); PLATELET COUNT, AUTOMATED 232 10^3/uL (150-450); RED BLOOD COUNT 4.87 10^6/uL (4.30-6.10); WHITE BLOOD COUNT 20.1 10^3/uL (4.0-10.0)
[2021-08-09 14:12] LABS: ATYPICAL LYMPH 10 % (0-5); EOSINOPHILS 2 % (0-3); LYMPHOCYTES 53 % (16-44); MONOCYTES 4 % (0-5); NEUTROPHILS 31 % (28-66)
[2021-08-09 14:13] LABS: SMUDGE CELLS 2+
[2021-08-09 14:14] LABS: OVALOCYTES 1+; PLATELET ESTIMATE NORMAL (NORMAL)
== END ==
LOC: M PLALAB 11:57
PROVIDERS: ATTEND Psychiatry & Neurology Neurology
DX: G50.0 Trigeminal neuralgia (principal)

== ENCOUNTER → 2021-09-16 | Outpatient (REF) | payer MEDICARE ==
[~2021-09-16] MED LIST changes: +CARB20TA PO; +EXCETAB33 PO; +GABA-283 PO; +META0.52 PO
[2021-09-16 11:38] LABS: HEMATOCRIT 42.7 % (42.0-52.0); HEMOGLOBIN 14.4 g/dl (13.5-17.5); MEAN CORPUSCULAR HEMOGLOBIN 30.6 pg (27.0-33.0); MEAN CORPUSCULAR HGB CONC 33.7 g/dl (32.0-36.5); MEAN CORPUSCULAR VOLUME 90.9 fl (80.0-96.0); PLATELET COUNT, AUTOMATED 231 10^3/uL (150-450); WHITE BLOOD COUNT 21.7 10^3/uL (4.0-10.0)
[2021-09-16 11:41] LABS: APPEARANCE, URINE CLEAR (CLEAR); BACTERIA, URINE AUTO NEGATIVE (NEGATIVE); BILIRUBIN, URINE AUTO NEGATIVE (NEGATIVE); BLOOD, URINE BLOOD NEGATIVE (NEGATIVE); CALCIUM LEVEL 8.7 MG/DL (8.8-10.2); COLOR, URINE STRAW (YELLOW); CREATININE FOR GFR 1.3 MG/DL (0.70-1.30); GLUCOSE, URINE (UA) AUTO NEGATIVE (NEGATIVE); KETONE, URINE AUTO NEGATIVE (NEGATIVE); LEUKOCYTE ESTERASE, URINE AUTO NEGATIVE (NEGATIVE); MUCUS, URINE SMALL (NEGATIVE); NITRITE, URINE AUTO NEGATIVE (NEGATIVE); POTASSIUM SERUM 4.1 MEQ/L (3.5-5.1); PROTEIN, URINE AUTO NEGATIVE (NEGATIVE); RBC, URINE AUTO 0 /HPF (0-3); SPECIFIC GRAVITY URINE AUTO 1.006 (1.002-1.035); SQUAMOUS EPITHELIAL CELL UR AU 0 /HPF (0-6); UROBILINOGEN, URINE AUTO 0.2 mg/dL (0.0-2.0); WBC, URINE AUTO 0 /HPF (0-3)
[2021-09-16 11:48] LABS: INR 0.84; PARTIAL THROMBOPLASTIN TIME 32.1 SECONDS (25.9-37.0); PROTHROMBIN TIME 11.9 SECONDS (12.7-14.5)
[2021-09-16 12:02] LABS: ATYPICAL LYMPH 15 % (0-5); EOSINOPHILS 2 % (0-3); LYMPHOCYTES 50 % (16-44); MONOCYTES 4 % (0-5); NEUTROPHILS 28 % (28-66)
[2021-09-16 12:03] LABS: OVALOCYTES 1+; PLATELET ESTIMATE NORMAL (NORMAL); SMUDGE CELLS 2+
== END ==
LOC: M LABDRAWC 11:21
PROVIDERS: ATTEND Neurological Surgery
DX: G50.0 Trigeminal neuralgia (principal)

== ENCOUNTER → 2021-09-23 | Outpatient (CLI) | payer MEDICARE ==
[~2021-09-23] MED LIST changes: +ISOVUE-370 76% 100ML VIAL As Ordered ONE
== END ==
LOC: M RAD 09:01
PROVIDERS: ATTEND Internal Medicine Medical Oncology
DX: C91.10 Chronic lymphocytic leukemia of B-cell type not having achieved remission (principal)
CPT/HCPCS: 70491; 71260; Q9967

== ENCOUNTER → 2022-03-23 | Outpatient (CLI) | payer MEDICARE ==
[~2022-03-23] MED LIST changes: +EXCETAB32 PO; -EXCETAB33 PO; +FLOM0.4C39 PO; -ISOVUE-370 76% 100ML VIAL As Ordered ONE
== END ==
LOC: M PLAIMG 08:39
PROVIDERS: ATTEND Nurse Practitioner Family
DX: M25.562 Pain in left knee (principal)

== ENCOUNTER 2022-04-18 23:42 | Emergency (ER) | payer MEDICARE ==
[~2022-04-18] VITALS: Ht 170.2 cm; Wt 84.1 kg
[2022-04-19] MEDS ORDERED: FIBEPOW11 PO (00:06)
[2022-04-19] MEDS ORDERED: VITA100065 PO (00:06)
[2022-04-19] MEDS ORDERED: MULT-90 PO (00:06)
[2022-04-19] MEDS ORDERED: KETOROLAC 60MG 2ML VIAL IM ONE (06:20)
[2022-04-19] MEDS ORDERED: LIDOCAINE 4% CREAM 5GM (LMX4) TOP ONE (06:20)
[2022-04-19 09:08] VITALS: BP 140/70
[2022-04-19] MEDS ORDERED: DICL20GE TP (09:21)
== END 2022-04-19 09:44 | disposition home or self-care (01) ==
LOC: M ED 23:42
DX: M79.605 Pain in left leg (principal); M25.462 Effusion, left knee; M71.22 Synovial cyst of popliteal space [Baker], left knee; R51.9 Headache, unspecified; Z88.8 Allergy status to other drugs, medicaments and biological substances; Z79.83 Long term (current) use of bisphosphonates; Z79.899 Other long term (current) drug therapy
CPT/HCPCS: 73564; 76882; 93971; 96372; 99283; J1885

== ENCOUNTER → 2022-05-24 | Outpatient (REF) | payer MEDICARE ==
[~2022-05-24] MED LIST changes: +DICL20GE TP; +FIBEPOW11 PO; +MULT-90 PO; +VITA100065 PO
[2022-05-24 17:40] LABS: HEMATOCRIT 38.2 % (42.0-52.0); HEMOGLOBIN 12.3 g/dl (13.5-17.5); MEAN CORPUSCULAR HEMOGLOBIN 30.2 pg (27.0-33.0); MEAN CORPUSCULAR HGB CONC 32.2 g/dl (32.0-36.5); MEAN CORPUSCULAR VOLUME 93.9 fl (80.0-96.0); PLATELET COUNT, AUTOMATED 541 10^3/uL (150-450); RED BLOOD COUNT 4.07 10^6/uL (4.30-6.10)
[2022-05-24 17:42] LABS: BLOOD UREA NITROGEN 18 MG/DL (9-23); CALCIUM LEVEL 8.6 MG/DL (8.3-10.6); CARBON DIOXIDE LEVEL 27 MMOL/L (20-31); CHLORIDE LEVEL 103 MMOL/L (98-107); CREATININE FOR GFR 1.14 MG/DL (0.70-1.30); GLOMERULAR FILTRATION RATE > 60.0 (>49); GLUCOSE, FASTING 98 MG/DL (74-106); POTASSIUM SERUM 4.3 MMOL/L (3.5-5.1); SODIUM LEVEL 139 MMOL/L (136-145)
[2022-05-24 18:18] LABS: WHITE BLOOD COUNT 31.9 10^3/uL (4.0-10.0)
[2022-05-24 19:03] LABS: LYMPHOCYTES 62 % (16-44); MONOCYTES 3 % (0-5); NEUTROPHILS 35 % (28-66)
[2022-05-24 19:04] LABS: PLATELET CLUMPS SMALL AMT; PLATELET ESTIMATE INCREASED (NORMAL); SMUDGE CELLS 1+
== END ==
LOC: M LABDRAWC 16:44
PROVIDERS: ATTEND Nurse Practitioner Family
DX: K57.30 Diverticulosis of large intestine without perforation or abscess without bleeding (principal)

== ENCOUNTER → 2022-06-23 | Outpatient (REF) | payer MEDICARE ==
[~2022-06-23] MED LIST changes: +CEPH500C; +OXYC-517
[2022-06-23 11:40] LABS: ALBUMIN 3.8 G/DL (3.2-5.2); ALKALINE PHOSPHATASE 84 U/L (46-116); ALT/SGPT 34 U/L (7.0-40); AST/SGOT 20 U/L (<34); BILIRUBIN,TOTAL 0.9 MG/DL (0.3-1.2); BLOOD UREA NITROGEN 20 MG/DL (9-23); CALCIUM LEVEL 9.2 MG/DL (8.3-10.6); CARBON DIOXIDE LEVEL 29 MMOL/L (20-31); CHLORIDE LEVEL 105 MMOL/L (98-107); CHOLESTEROL LEVEL 180 MG/DL (<200); CHOLESTEROL RISK RATIO 4.65 (<5); CREATININE FOR GFR 1.22 MG/DL (0.70-1.30); GLOMERULAR FILTRATION RATE > 60.0 (>49); GLUCOSE, FASTING 85 MG/DL (74-106); HDL CHOLESTEROL 38.7 MG/DL (>40); LDL CHOLESTEROL 119.1 MG/DL (<100); NON-HDL-C 141 MG/DL; POTASSIUM SERUM 4.3 MMOL/L (3.5-5.1); SODIUM LEVEL 142 MMOL/L (136-145); TOTAL PROTEIN 6.6 G/DL (5.7-8.2); TRIGLYCERIDES LEVEL 111 MG/DL (<150)
== END ==
LOC: M LABDRAWC 10:59
PROVIDERS: ATTEND Nurse Practitioner Family
DX: E78.49 Other hyperlipidemia (principal)

== ENCOUNTER → 2023-01-10 | Outpatient (CLI) | payer MEDICARE ==
[~2023-01-10] MED LIST changes: -GABA-283 PO; +GABA-284 PO
[2023-01-10 14:15] LABS: BLOOD UREA NITROGEN 21 MG/DL (9-23); CREATININE FOR GFR 1.13 MG/DL (0.70-1.30); GLOMERULAR FILTRATION RATE > 60.0 (>49)
== END ==
LOC: M LAB 11:48
PROVIDERS: ATTEND Physician Assistant Medical
DX: R49.0 Dysphonia (principal)

== ENCOUNTER → 2023-01-12 | Outpatient (CLI) | payer MEDICARE ==
[~2023-01-12] MED LIST changes: +ISOVUE-370 76% 100ML VIAL As Ordered ONE
== END ==
LOC: M RAD 07:45
PROVIDERS: ATTEND Physician Assistant Medical
DX: R49.0 Dysphonia (principal)
CPT/HCPCS: 70491; Q9967

== ENCOUNTER → 2023-02-07 | Outpatient (CLI) | payer MEDICARE ==
[~2023-02-07] MED LIST changes: -ISOVUE-370 76% 100ML VIAL As Ordered ONE
[2023-02-07 16:41] LABS: THYROID STIMULATING HORMONE 1.52 uIU/ML (0.55-4.78)
[2023-02-07 16:52] LABS: FREE T4 1.05 NG/DL (0.89-1.76)
== END ==
LOC: M PLALAB 13:57
PROVIDERS: ATTEND Otolaryngology
DX: C91.10 Chronic lymphocytic leukemia of B-cell type not having achieved remission (principal); R53.83 Other fatigue

== ENCOUNTER → 2023-02-28 | Outpatient (CLI) | payer MEDICARE ==
[~2023-02-28] MED LIST changes: +LIDOCAINE 1% MDV 20ML VIAL As Ordered ONE; +QC F0.52 PO; +TUMS500C PO
[2023-02-28 09:15] VITALS: TEMP 98.5
[2023-02-28 10:53] VITALS: BP 131/79; O2SAT 95
== END ==
LOC: M IRPRO 08:57
PROVIDERS: ATTEND Otolaryngology
DX: C91.10 Chronic lymphocytic leukemia of B-cell type not having achieved remission (principal)

== ENCOUNTER → 2023-04-10 | Outpatient (CLI) | payer MEDICARE ==
[~2023-04-10] MED LIST changes: +GASTROGRAFIN SOLUTION 30ML As Ordered ONE; +ISOVUE-370 76% 100ML VIAL As Ordered ONE; -LIDOCAINE 1% MDV 20ML VIAL As Ordered ONE
== END ==
LOC: M RAD 09:04
PROVIDERS: ATTEND Internal Medicine Medical Oncology
DX: K44.9 Diaphragmatic hernia without obstruction or gangrene (principal)
CPT/HCPCS: 71260; 74177; Q9963; Q9967

== ENCOUNTER → 2023-07-27 | Outpatient (REF) | payer MEDICARE ==
[~2023-07-27] MED LIST changes: -GASTROGRAFIN SOLUTION 30ML As Ordered ONE; -ISOVUE-370 76% 100ML VIAL As Ordered ONE
[2023-07-27 12:38] LABS: ALKALINE PHOSPHATASE 86 U/L (46-116); ALT/SGPT 25 U/L (7.0-40); AST/SGOT 19 U/L (<34); BILIRUBIN,TOTAL 0.7 MG/DL (0.3-1.2); BLOOD UREA NITROGEN 20 MG/DL (9-23); CALCIUM LEVEL 9.2 MG/DL (8.3-10.6); CARBON DIOXIDE LEVEL 30 MMOL/L (20-31); CHLORIDE LEVEL 107 MMOL/L (98-107); CHOLESTEROL LEVEL 165 MG/DL (<200); CHOLESTEROL RISK RATIO 5.35 (<5); CREATININE FOR GFR 1.27 MG/DL (0.70-1.30); GLOMERULAR FILTRATION RATE > 60.0 (>49); GLUCOSE, FASTING 95 MG/DL (74-106); HDL CHOLESTEROL 30.8 MG/DL (>40); NON-HDL-C 134.2 MG/DL; POTASSIUM SERUM 4.1 MMOL/L (3.5-5.1); SODIUM LEVEL 141 MMOL/L (136-145); TOTAL PROTEIN 6.6 G/DL (5.7-8.2); TRIGLYCERIDES LEVEL 221 MG/DL (<150)
== END ==
LOC: M LABDRAWC 11:37
PROVIDERS: ATTEND Nurse Practitioner Family
DX: E78.49 Other hyperlipidemia (principal)

== ENCOUNTER → 2024-02-07 | Outpatient (CLI) | payer MEDICARE ==
[2024-02-07 11:05] LABS: BASO # 0.2 10^3/uL (0.0-0.2); BASO % 0.4 % (0.0-1.0); EOS # 0.5 10^3/uL (0.0-0.5); EOS % 0.8 % (0.0-3.0); HEMATOCRIT 41.9 % (42.0-52.0); HEMOGLOBIN 13.9 g/dl (13.5-17.5); LYMPH # 51.5 10^3/uL (1.5-5.0); LYMPH % 80.6 % (24.0-44.0); MEAN CORPUSCULAR HEMOGLOBIN 30.8 pg (27.0-33.0); MEAN CORPUSCULAR HGB CONC 33.2 g/dl (32.0-36.5); MEAN CORPUSCULAR VOLUME 92.9 fl (80.0-96.0); MONO % 5.9 % (2.0-8.0); NEUTROPHILS # 7.7 10^3/uL (1.5-8.5); PLATELET COUNT, AUTOMATED 175 10^3/uL (150-450); RED BLOOD COUNT 4.51 10^6/uL (4.30-6.10)
[2024-02-07 11:07] LABS: MONO # 3.8 10^3/uL (0.0-0.8); WHITE BLOOD COUNT 63.9 10^3/uL (4.0-10.0)
[2024-02-07 11:34] LABS: ALBUMIN 3.9 G/DL (3.2-5.2); BILIRUBIN,TOTAL 0.7 MG/DL (0.3-1.2); CALCIUM LEVEL 9.6 MG/DL (8.3-10.6); CREATININE FOR GFR 1.28 MG/DL (0.70-1.30); GLOMERULAR FILTRATION RATE 59.7 (>49); POTASSIUM SERUM 4.5 MMOL/L (3.5-5.1); TOTAL PROTEIN 6.7 G/DL (5.7-8.2)
== END ==
LOC: M LAB 10:38
PROVIDERS: ATTEND Internal Medicine Medical Oncology
DX: C91.10 Chronic lymphocytic leukemia of B-cell type not having achieved remission (principal)

== ENCOUNTER → 2024-05-07 | Outpatient (REF) | payer MEDICARE ==
[2024-05-07 18:14] LABS: LDH LACTATE DEHYDROGENASE 273 U/L (120-246)
[2024-05-07 18:15] LABS: ALKALINE PHOSPHATASE 77 U/L (40-129); ALT/SGPT 24 U/L (7.0-40); AST/SGOT 27 U/L (<34); BILIRUBIN,TOTAL 0.5 MG/DL (0.3-1.2); BLOOD UREA NITROGEN 22 MG/DL (9-23); CALCIUM LEVEL 9.3 MG/DL (8.3-10.6); CARBON DIOXIDE LEVEL 23 MMOL/L (20-31); CHLORIDE LEVEL 109 MMOL/L (98-107); CREATININE FOR GFR 1.18 MG/DL (0.70-1.30); GLOMERULAR FILTRATION RATE > 60.0 (>49); GLUCOSE, FASTING 95 MG/DL (74-106); POTASSIUM SERUM 4.5 MMOL/L (3.5-5.1); SODIUM LEVEL 142 MMOL/L (136-145); TOTAL PROTEIN 6.7 G/DL (5.7-8.2)
[2024-05-07 18:34] LABS: BASO # 0.2 10^3/uL (0.0-0.2); BASO % 0.3 % (0.0-1.0); EOS # 0.3 10^3/uL (0.0-0.5); EOS % 0.4 % (0.0-3.0); HEMATOCRIT 42.9 % (42.0-52.0); HEMOGLOBIN 14.2 g/dl (13.5-17.5); LYMPH # 55.6 10^3/uL (1.5-5.0); LYMPH % 86.6 % (24.0-44.0); MEAN CORPUSCULAR HGB CONC 33.1 g/dl (32.0-36.5); MEAN CORPUSCULAR VOLUME 90.7 fl (80.0-96.0); MONO % 10.5 % (2.0-8.0); NEUTROPHILS # 1.3 10^3/uL (1.5-8.5); NEUTROPHILS % 2.2 % (36.0-66.0); PLATELET COUNT, AUTOMATED 183 10^3/uL (150-450); RED BLOOD COUNT 4.73 10^6/uL (4.30-6.10)
[2024-05-07 19:02] LABS: WHITE BLOOD COUNT 64.2 10^3/uL (4.0-10.0)
[2024-05-07 19:05] LABS: MONO # 6.8 10^3/uL (0.0-0.8)
== END ==
LOC: M LABDRAWC 17:00
PROVIDERS: ATTEND Internal Medicine Medical Oncology
DX: C91.10 Chronic lymphocytic leukemia of B-cell type not having achieved remission (principal)

== ENCOUNTER → 2024-07-22 | Outpatient (REF) | payer MEDICARE ==
[2024-07-22 17:33] LABS: ALBUMIN 4.1 G/DL (3.2-5.2); ALKALINE PHOSPHATASE 81 U/L (40-129); ALT/SGPT 27 U/L (7.0-40); AST/SGOT 24 U/L (<34); BILIRUBIN,TOTAL 0.7 MG/DL (0.3-1.2); BLOOD UREA NITROGEN 24 MG/DL (9-23); CARBON DIOXIDE LEVEL 26 MMOL/L (20-31); CHLORIDE LEVEL 108 MMOL/L (98-107); CHOLESTEROL LEVEL 171 MG/DL (<200); CHOLESTEROL RISK RATIO 5.66 (<5); CREATININE FOR GFR 1.23 MG/DL (0.70-1.30); GLOMERULAR FILTRATION RATE > 60.0 (>49); GLUCOSE, FASTING 91 MG/DL (74-106); HDL CHOLESTEROL 30.2 MG/DL (>40); LDL CHOLESTEROL 98.6 MG/DL (<100); NON-HDL-C 140.8 MG/DL; POTASSIUM SERUM 4.6 MMOL/L (3.5-5.1); SODIUM LEVEL 143 MMOL/L (136-145); TOTAL PROTEIN 6.8 G/DL (5.7-8.2); TRIGLYCERIDES LEVEL 211 MG/DL (<150)
== END ==
LOC: M LABDRAWC 16:44
PROVIDERS: ATTEND Nurse Practitioner Family
DX: Z00.00 Encounter for general adult medical examination without abnormal findings (principal); E78.49 Other hyperlipidemia

== ENCOUNTER → 2024-09-11 | Outpatient (REF) | payer MEDICARE ==
[~2024-09-11] MED LIST changes: +TAMS1CAP17
[2024-09-11 19:05] LABS: ALBUMIN 3.9 G/DL (3.2-5.2); BILIRUBIN,TOTAL 0.5 MG/DL (0.3-1.2); CALCIUM LEVEL 9.5 MG/DL (8.3-10.6); CREATININE FOR GFR 1.18 MG/DL (0.70-1.30); GLOMERULAR FILTRATION RATE 67.2 (>49); POTASSIUM SERUM 4.4 MMOL/L (3.5-5.1); TOTAL PROTEIN 6.6 G/DL (5.7-8.2)
[2024-09-11 19:07] LABS: BASO # 0.1 10^3/uL (0.0-0.2); BASO % 0.1 % (0.0-1.0); EOS # 0.3 10^3/uL (0.0-0.5); EOS % 0.4 % (0.0-3.0); HEMATOCRIT 43.5 % (42.0-52.0); LYMPH # 74.2 10^3/uL (1.5-5.0); LYMPH % 89.8 % (24.0-44.0); MEAN CORPUSCULAR HEMOGLOBIN 29.4 pg (27.0-33.0); MEAN CORPUSCULAR HGB CONC 32.2 g/dl (32.0-36.5); MEAN CORPUSCULAR VOLUME 91.4 fl (80.0-96.0); NEUTROPHILS # 2.1 10^3/uL (1.5-8.5); NEUTROPHILS % 2.6 % (36.0-66.0); PLATELET COUNT, AUTOMATED 168 10^3/uL (150-450); RED BLOOD COUNT 4.76 10^6/uL (4.30-6.10)
[2024-09-11 19:20] LABS: MONO # 5.8 10^3/uL (0.0-0.8); WHITE BLOOD COUNT 82.6 10^3/uL (4.0-10.0)
== END ==
LOC: M LABDRAWC 17:49
PROVIDERS: ATTEND Internal Medicine Medical Oncology
DX: C91.10 Chronic lymphocytic leukemia of B-cell type not having achieved remission (principal)

== ENCOUNTER → 2024-10-01 | Outpatient (CLI) | payer MEDICARE ==
[~2024-10-01] MED LIST changes: -FLOM0.4C39 PO; +ISOVUE-370 76% 100ML VIAL As Ordered ONE; +TAMS-18 PO
== END ==
LOC: M RAD 13:45
DX: C91.10 Chronic lymphocytic leukemia of B-cell type not having achieved remission (principal); R59.0 Localized enlarged lymph nodes; K76.89 Other specified diseases of liver; R16.1 Splenomegaly, not elsewhere classified; N28.1 Cyst of kidney, acquired; K44.9 Diaphragmatic hernia without obstruction or gangrene; K57.90 Diverticulosis of intestine, part unspecified, without perforation or abscess without bleeding; Z98.0 Intestinal bypass and anastomosis status; Z90.49 Acquired absence of other specified parts of digestive tract
CPT/HCPCS: 70491; 71260; 74177; Q9967

== ENCOUNTER → 2025-02-20 | Outpatient (CLI) | payer MEDICARE ==
[~2025-02-20] MED LIST changes: +ALLO10TA PO; +AMOX500T2 PO; +BENA25CA4 PO; +CENT1TAB2 PO; +CEPH500C PO; +DOXY100T PO; +GABA-1171 PO; -ISOVUE-370 76% 100ML VIAL As Ordered ONE; -TAMS1CAP17; +TAMS1CAP17 PO; +TRIA0.1P12 TEETH; +VALA1TAB5 PO; +VALA500T5 PO
[2025-02-20 15:12] LABS: PLATELET COUNT, AUTOMATED 150 10^3/uL (150-450)
[2025-02-20 15:39] LABS: ERYTHROCYTE SEDIMENTATION RATE 24 mm/hr (0-20)
[2025-02-20 15:49] LABS: C REACTIVE PROTEIN QUANTITATIV 4.65 MG/DL (<1.0)
[2025-02-20 15:50] LABS: ALT/SGPT 22 U/L (7.0-40); AST/SGOT 21 U/L (<34); CALCIUM LEVEL 9.5 MG/DL (8.3-10.6); CARBON DIOXIDE LEVEL 26 MMOL/L (20-31); CHLORIDE LEVEL 101 MMOL/L (98-107); CREATININE FOR GFR 1.56 MG/DL (0.70-1.30); GLOMERULAR FILTRATION RATE 48.1 (>49); POTASSIUM SERUM 4.2 MMOL/L (3.5-5.1); SODIUM LEVEL 138 MMOL/L (136-145)
[2025-02-20 15:51] LABS: FREE T4 1.22 NG/DL (0.89-1.76); RHEUMATOID FACTOR QUANT 5.0 IU/ML (<14)
[2025-02-20 17:08] LABS: ATYPICAL LYMPH 11 % (0-5); EOSINOPHILS 1 % (0-3); LYMPHOCYTES 81 % (16-44); MONOCYTES 2 % (0-5); NEUTROPHILS 5 % (28-66)
[2025-02-20 17:09] LABS: PLATELET ESTIMATE NORMAL (NORMAL)
[2025-02-23 13:57] LABS: SSA SJOGRENS A <1.0 NEG AI (<1.0 NEG); SSB SJOGRENS B <1.0 NEG AI (<1.0 NEG)
[2025-02-23 16:07] LABS: HERPES ZOSTER, VARICELLA IgG 1.30 S/CO (>=1.00)
[2025-02-24 18:38] LABS: RUBELLA ANTIBODY IGM < 20.00 AU/mL (<20.00)
[2025-02-24 19:02] LABS: LYME TOTAL ANTIBODY CIA <= 0.90 Index (<=0.90)
[2025-02-24 21:42] LABS: HERPES ZOSTER, VARICELLA IgM <= 0.90 (<=0.90)
== END ==
LOC: M PLALAB 11:36
PROVIDERS: ATTEND Nurse Practitioner Family
DX: R21 Rash and other nonspecific skin eruption (principal); Z11.3 Encounter for screening for infections with a predominantly sexual mode of transmission; Z72.89 Other problems related to lifestyle; Z79.899 Other long term (current) drug therapy

== ENCOUNTER → 2025-03-23 | Outpatient (CLI) | payer MEDICARE ==
[~2025-03-23] MED LIST changes: +FLUC150T9; +GABA-1172; +ZANU80CA PO
== END ==
LOC: M PLARAD 11:42
PROVIDERS: ATTEND Internal Medicine Medical Oncology
DX: C91.10 Chronic lymphocytic leukemia of B-cell type not having achieved remission (principal)
CPT/HCPCS: 78815; A9552

== ENCOUNTER → 2025-04-17 | Outpatient (CLI) | payer MEDICARE ==
[~2025-04-17] MED LIST changes: +ZANU160T PO
[2025-04-17 16:09] LABS: BASO # 0.1 10^3/uL (0.0-0.2); BASO % 0.1 % (0.0-1.0); EOS # 0.3 10^3/uL (0.0-0.5); EOS % 0.2 % (0.0-3.0); LYMPH # 116.1 10^3/uL (1.5-5.0); LYMPH % 96.0 % (24.0-44.0); MONO # 1.6 10^3/uL (0.0-0.8); MONO % 1.3 % (2.0-8.0); NEUTROPHILS # 2.8 10^3/uL (1.5-8.5); NEUTROPHILS % 2.3 % (36.0-66.0); PLATELET COUNT, AUTOMATED 182 10^3/uL (150-450)
[2025-04-17 16:12] LABS: LDH LACTATE DEHYDROGENASE 158.0 U/L (120-246)
[2025-04-17 16:14] LABS: ALT/SGPT 21.0 U/L (7.0-40); AST/SGOT 17.0 U/L (<34); CALCIUM LEVEL 8.9 MG/DL (8.3-10.6); CARBON DIOXIDE LEVEL 26.0 MMOL/L (20-31); CHLORIDE LEVEL 107.0 MMOL/L (98-107); CREATININE FOR GFR 1.35 MG/DL (0.70-1.30); GLOMERULAR FILTRATION RATE 57.2 (>49); POTASSIUM SERUM 4.1 MMOL/L (3.5-5.1); SODIUM LEVEL 145.0 MMOL/L (136-145)
== END ==
LOC: M LABDRAWC 09:17
PROVIDERS: ATTEND Internal Medicine Medical Oncology
DX: C91.10 Chronic lymphocytic leukemia of B-cell type not having achieved remission (principal)

== ENCOUNTER → 2025-05-11 | Outpatient (REF) | payer MEDICARE ==
[2025-05-11 18:38] LABS: LDH LACTATE DEHYDROGENASE 163.0 U/L (120-246)
[2025-05-11 18:39] LABS: ALT/SGPT 19.0 U/L (7.0-40); AST/SGOT 22.0 U/L (<34); CALCIUM LEVEL 8.9 MG/DL (8.3-10.6); CARBON DIOXIDE LEVEL 26.0 MMOL/L (20-31); CHLORIDE LEVEL 106.0 MMOL/L (98-107); CREATININE FOR GFR 1.46 MG/DL (0.70-1.30); GLOMERULAR FILTRATION RATE 52.1 (>49); IRON (FE) 59.0 UG/DL (65-175); PERCENT SATURATION 19.3 % (19.7-50.0); POTASSIUM SERUM 3.8 MMOL/L (3.5-5.1); SODIUM LEVEL 141.0 MMOL/L (136-145)
[2025-05-11 18:41] LABS: BASO # 0.1 10^3/uL (0.0-0.2); BASO % 0.1 % (0.0-1.0); EOS # 0.2 10^3/uL (0.0-0.5); EOS % 0.2 % (0.0-3.0); LYMPH # 109.8 10^3/uL (1.5-5.0); LYMPH % 95.0 % (24.0-44.0); MONO # 0.8 10^3/uL (0.0-0.8); MONO % 0.7 % (2.0-8.0); NEUTROPHILS # 4.5 10^3/uL (1.5-8.5); NEUTROPHILS % 3.9 % (36.0-66.0); PLATELET COUNT, AUTOMATED 166 10^3/uL (150-450); VITAMIN B12 LEVEL 788.0 PG/ML (211-911)
== END ==
LOC: M LABDRAWC 17:13
PROVIDERS: ATTEND Internal Medicine Medical Oncology
DX: C91.10 Chronic lymphocytic leukemia of B-cell type not having achieved remission (principal)